=== PATIENT | male | born 1950 | race Caucasian/White ===

== ENCOUNTER 2016-11-13 06:45 | Emergency (ER) | payer MEDICARE, OTHER ==
[2016-11-13 06:52] VITALS: BP 155/83
[2016-11-13 08:54] LABS: Hematocrit 53 % (42-52); Hemoglobin 17.2 g/dl (14.0-18.0); Mean Corpuscular HGB Conc 33 g/dl (31-36); Mean Corpuscular Hemoglobin 30 pg (27-31); Mean Corpuscular Volume 91 fL (80-94); Mean Platelet Volume 7 um3 (7.4-10.4); Red Blood Count 5.83 10^6/ul (4.0-5.4); Red Cell Distribution Width 14 % (10.5-15); White Blood Count 8.1 10^3/ul (3.5-10.8)
[2016-11-13 09:06] LABS: Urine Bacteria Absent (Absent); Urine Bilirubin Negative (Negative); Urine Glucose Negative (Negative); Urine Nitrite Negative (Negative)
[2016-11-13 09:08] LABS: Albumin 4.1 g/dL (3.2-5.2); BUN/Creatinine Ratio 21.2 (8-20); Calcium 9.3 mg/dL (8.6-10.3); EGFR African American 155.8 (>60); EGFR Non-African American 121.1 (>60); Globulin 2.8 g/dL (2-4); Potassium 4.3 mmol/L (3.5-5.0); Total Bilirubin 0.6 mg/dL (0.2-1.0); Total Protein 6.9 g/dL (6.4-8.9)
--- NOTE | 2016-11-13 09:50 | ED ---
Alec Sevilla Salem, scribed for Ayaz Manzano MD on 11/13/16 at 0710 . GI/ HPI - HPI Summary HPI Summary: Patient is a 66 y/o M who presents to the ED with blood in semen since 3 days. He states that he was masturbating when sx occurred, but it has not occurred since. Pt denies fever, chills, dysuria, urgency, trouble starting stream, discharge, urinary sx, or abd pain, but reports mild frequency and mild trouble finishing stream. He states that he does not take blood thinners and denies any recent trauma or relevant surgery. No hx of prostate complaints and no PMHx of DM or A Fib. NKDA. - History of Current Complaint Chief Complaint: EDGeneral Time Seen by Provider: 11/13/16 07:10 Stated Complaint: BLOOD IN ONCOLOGIST Hx Obtained From: Patient Onset/Duration: Started Days Ago, Atraumatic, Resolved Timing: Lasting Minutes Severity: Moderate Current Severity: Moderate Vaginal Bleeding Description: Bright Red Pain Intensity: 0 Associated Signs and Symptoms: Positive: Negative Additional Signs & Symptoms: Negative: Penile Discharge Aggravating Factor(s): Nothing Alleviating Factor(s): Nothing - Allergy/Home Medications Allergies/Adverse Reactions: Allergies Allergy/AdvReac Type Severity Reaction Status Date / Time Codeine Allergy Vomiting Verified 11/13/16 06:56 PMH/Surg Hx/FS Hx/Imm Hx Previously Healthy: Yes Infectious Disease History: No Infectious Disease History: Denies: Traveled Outside the [place] in Last 30 Days - Family History Known Family History: Negative: Hypertension - Social History Alcohol Use: None Hx Substance Use: No Substance Use Type: Reports: None Hx Tobacco Use: Yes Smoking Status (MU): Heavy Every Day Tobacco Smoker Review of Systems Negative: Fever, Chills Negative: Abdominal Pain Genitourinary: Other - No trouble starting stream. Positive: no symptoms reported, frequency - Mild. , other - Blood in semen. Mild touble finishing stream. . Negative: dysuria, discharge All Other Systems Reviewed And Are Negative: Yes Physical Exam - Summary Physical Exam Summary: The patient is well-nourished in no acute distress and in no acute pain. Pt appears older than stated age. The skin is warm and dry and skin color reflects adequate perfusion. HEENT: The head is normocephalic and atraumatic. The pupils are equal and reactive. The conjunctivae are clear and without drainage. Nares are patent and without drainage. Mouth reveals moist mucous membranes and the throat is without erythema and exudate. The external ears are intact. The ear canals are patent and without drainage. The tympanic membranes are intact. Neck is supple with full range of motion and non-tender. There are no carotid bruits. There is no neck vein distension. Respiratory: Chest is non-tender. Lungs are clear to auscultation and breath sounds are symmetrical and equal. Cardiovascular: Hear is regular rate and rhythm. There is no murmur or rub auscultated. There is no peripheral edema and pulses are symmetrical and equal. Abdomen: The abdomen is soft and non-tender. GIGU exam: Testicles distended bilaterally. No inguinal adenopathy. Circumcised. No penile discharge elicited. There appears to be no trauma to penis. External intact. Musculoskeletal: There is no back pain noted. Extremities are non-tender with full range of motion. There is good capillary refill. Neurological: Patient is alert and oriented to person, place and time. The patient has symmetrical motor strength in all four extremities. Psychiatric: The patient has an appropriate affect and does not exhibit any anxiety or depression. Triage Information Reviewed: Yes Vital Signs On Initial Exam: Initial Vitals Temp Pulse Resp BP Pulse Ox 98.2 F 104 20 155/83 98 11/13/16 06:49 11/13/16 06:49 11/13/16 06:49 11/13/16 06:49 11/13/16 06:49 Vital Signs Reviewed: Yes Diagnostics - Vital Signs Vital Signs Temp Pulse Resp BP Pulse Ox 11/13/16 06:55 98.2 F 104 20 155/83 100 11/13/16 06:49 98.2 F 104 20 155/83 98 - Laboratory Lab Results: Lab Results 11/13/16 11/13/16 11/13/16 Range/Units 08:44 08:44 08:44 WBC 8.1 (3.5-10.8) 10^3/ul RBC 5.83 H (4.0-5.4) 10^6/ul Hgb 17.2 (14.0-18.0) g/dl Hct 53 H (42-52) % MCV 91 (80-94) fL MCH 30 (27-31) pg MCHC 33 (31-36) g/dl RDW 14 (10.5-15) % Plt Count 208 (150-450) 10^3/ul MPV 7 L (7.4-10.4) um3 Neut % (Auto) 61.0 (38-83) % Lymph % (Auto) 27.1 (25-47) % Parmer % (Auto) 7.9 (1-9) % Eos % (Auto) 3.1 (0-6) % Baso % (Auto) 0.9 (0-2) % Absolute Neuts (auto) 5.0 (1.5-7.7) 10^3/ul Absolute Lymphs (auto) 2.2 (1.0-4.8) 10^3/ul Absolute Monos (auto) 0.6 (0-0.8) 10^3/ul Absolute Eos (auto) 0.3 (0-0.6) 10^3/ul Absolute Basos (auto) 0.1 (0-0.2) 10^3/ul Absolute Nucleated RBC 0.01 10^3/ul Nucleated RBC % 0.1 INR (Anticoag Therapy) (0.89-1.11) Sodium 136 (133-145) mmol/L Potassium 4.3 (3.5-5.0) mmol/L Chloride 106 (101-111) mmol/L Carbon Dioxide 25 (22-32) mmol/L Anion Gap 5 (2-11) mmol/L BUN 14 (6-24) mg/dL Creatinine 0.66 L (0.67-1.17) mg/dL Est GFR ( Amer) 155.8 (>60) Est GFR (Non-Af Amer) 121.1 (>60) BUN/Creatinine Ratio 21.2 H (8-20) Glucose 100 (70-100) mg/dL Calcium 9.3 (8.6-10.3) mg/dL Total Bilirubin 0.60 (0.2-1.0) mg/dL AST 16 (13-39) U/L ALT 22 (7-52) U/L Alkaline Phosphatase 92 (34-104) U/L Total Protein 6.9 (6.4-8.9) g/dL Albumin 4.1 (3.2-5.2) g/dL Globulin 2.8 (2-4) g/dL Albumin/Globulin Ratio 1.5 (1-3) Prostate Specific Ag Pending Urine Color Yellow Urine Appearance Clear Urine pH 5.0 (5-9) Ur Specific Brandon 1.021 (1.010-1.030) Urine Protein Negative (Negative) Urine Ketones Negative (Negative) Urine Blood 1+ H (Negative) Urine Nitrate Negative (Negative) Urine Bilirubin Negative (Negative) Urine Urobilinogen Negative (Negative) Ur Leukocyte Esterase Negative (Negative) Urine WBC (Auto) Absent (Absent) Urine RBC (Auto) 1+(3-5/hpf) H (Absent) Urine Bacteria Absent (Absent) Urine Glucose Negative (Negative) 11/13/16 Range/Units 08:44 WBC (3.5-10.8) 10^3/ul RBC (4.0-5.4) 10^6/ul Hgb (14.0-18.0) g/dl Hct (42-52) % MCV (80-94) fL MCH (27-31) pg MCHC (31-36) g/dl RDW (10.5-15) % Plt Count (150-450) 10^3/ul MPV (7.4-10.4) um3 Neut % (Auto) (38-83) % Lymph % (Auto) (25-47) % Parmer % (Auto) (1-9) % Eos % (Auto) (0-6) % Baso % (Auto) (0-2) % Absolute Neuts (auto) (1.5-7.7) 10^3/ul Absolute Lymphs (auto) (1.0-4.8) 10^3/ul Absolute Monos (auto) (0-0.8) 10^3/ul Absolute Eos (auto) (0-0.6) 10^3/ul Absolute Basos (auto) (0-0.2) 10^3/ul Absolute Nucleated RBC 10^3/ul Nucleated RBC % INR (Anticoag Therapy) 0.95 (0.89-1.11) Sodium (133-145) mmol/L Potassium (3.5-5.0) mmol/L Chloride (101-111) mmol/L Carbon Dioxide (22-32) mmol/L Anion Gap (2-11) mmol/L BUN (6-24) mg/dL Creatinine (0.67-1.17) mg/dL Est GFR ( Amer) (>60) Est GFR (Non-Af Amer) (>60) BUN/Creatinine Ratio (8-20) Glucose (70-100) mg/dL Calcium (8.6-10.3) mg/dL Total Bilirubin (0.2-1.0) mg/dL AST (13-39) U/L ALT (7-52) U/L Alkaline Phosphatase (34-104) U/L Total Protein (6.4-8.9) g/dL Albumin (3.2-5.2) g/dL Globulin (2-4) g/dL Albumin/Globulin Ratio (1-3) Prostate Specific Ag Urine Color Urine Appearance Urine pH (5-9) Ur Specific Brandon (1.010-1.030) Urine Protein (Negative) Urine Ketones (Negative) Urine Blood (Negative) Urine Nitrate (Negative) Urine Bilirubin (Negative) Urine Urobilinogen (Negative) Ur Leukocyte Esterase (Negative) Urine WBC (Auto) (Absent) Urine RBC (Auto) (Absent) Urine Bacteria (Absent) Urine Glucose (Negative) Result Diagrams: 11/13/16 08:44 11/13/16 08:44 Lab Statement: Any lab studies that have been ordered have been reviewed, and results considered in the medical decision making process. GIGU Course/Dx - Course Course Of Treatment: 66 y/o M presents with blood in semen since 3 days. Pt denies fever, chills, dysuria, urgency, trouble starting stream, discharge, urinary sx, or abd pain, but reports mild frequency and mild trouble finishing stream. Pt will be DC'd with Cipro to follow up with urology. - Diagnoses Differential Diagnoses - Male: Other - std, prostatitis, anticoagulation therapy , trauma, uti, trichomoniasis, prostrate cancer Provider Diagnoses: Hematospermia Discharge - Discharge Plan Condition: Stable Disposition: HOME Prescriptions: Ciprofloxacin TAB* [Cipro 500 MG TAB*] 500 mg PO BID #20 tab Referrals: [facility] [place] PHYSICIAN REFERRAL [Outside] Malvin Abraham MD [Medical Doctor] - Additional Instructions: Please follow up with Dr. Abraham. SUMMARY AND RECOMMENDATIONS Hematospermia is almost always a benign condition. There are multiple causes for hematospermia (table 1); the most common etiology is prostate biopsy. (See ' Etiology' above.) For patients who are otherwise asymptomatic, the initial evaluation consists of a history, physical examination, and urinalysis. Other studies are indicated only if abnormalities are suggested by these initial measures or if hematospermia persists. (See 'Evaluation' above.) Men with hematospermia and symptoms of urethritis should be tested for gonorrhea and chlamydia. Persistent unexplained hematospermia (lasting longer than one month) should be evaluated with transrectal ultrasonography and, in men over age 50, referral to a urologist. (See 'Evaluation' above.) In most cases, the evaluation will not identify a clear cause of hematospermia. Thus, there is no specific medical or surgical treatment for the majority of patients, and the condition will usually resolve spontaneously. (See 'Treatment ' above.) When no serious abnormalities with hematospermia are found, the most important therapeutic intervention is reassurance. (See 'Reassurance' above.) Abnormalities reported in patients with hematospermia Infections Chlamydia Cytomegalovirus Enterococcus faecalis Herpes simplex virus Schistosomiasis Trichomoniasis Tuberculosis Ureaplasma urealyticum Malignant tumors (urogenital) Bladder cancer Prostate adenocarcinoma Prostate sarcoma Testicular tumors Malignant tumors (metastatic) Melanoma Renal cell carcinoma Prostatic disorders Benign prostatic hypertrophy Prostatic calculi Prostatic telangiectasia Prostatic urethral hemangiomas Prostatic urethral polyps Prostatic utricle (or mllerian duct) cysts Prostatitis Seminal vesicle disorders Adenomyosis Amyloidosis Calculi Cancer Cysts Dilated seminal vesicles Ectopic prostate tissue Hemorrhage Spermatic cord and ejaculatory system disorders Cavernous hemangiomas Ejaculation duct obstruction Epididymitis Urethral disorders Ectopic prostate tissue Papillary urethritis Vascular disorders Genitourinary varices Malignant hypertension Other Aspirin therapy Hyperuricemia Prothrombin deficiency von Willebrand disease The documentation as recorded by the Alec tobar Salem accurately reflects the service I personally performed and the decisions made by Jose Juan knight Drew, MD.
== END 2016-11-13 09:45 | disposition home or self-care (01) ==
LOC: ED 06:45
DX: R36.1 Hematospermia (principal); F17.210 Nicotine dependence, cigarettes, uncomplicated
CPT/HCPCS: 36415; 80053; 81003; 81015; 84153; 85025; 85610; 87491; 87591; 99282; G0103

== ENCOUNTER 2017-01-22 06:12 | Day surgery (SDC) | payer MEDICARE ==
--- NOTE | 2017-01-15 00:23 | HP ---
CC: Dr. Kimberly Hayes* HISTORY AND PHYSICAL: DATE OF PLANNED ADMISSION AND SURGERY: 01/22/17 HISTORY OF PRESENT ILLNESS: Mr. Mahoney is a 66-year-old white male who is admitted with microscopic hematuria, thickening of the distal right ureter for cystoscopy, right retrograde pyelography, possible right ureteroscopy, and right ureteral stent insertion. Mr. Mahoney is a chronic heavy smoker of 1 to 2 packs per day for more than 50 years. He presented to the emergency room last month with asymptomatic hemospermia. There was no associated flank or abdominal pain and no voiding symptoms. He did not have any urinary tract infection. His PSA was normal at 0.8 and his urinalysis shows 1+ blood, was negative otherwise. He was managed conservatively and referred to our office for further evaluation. The hemospermia has not recurred and he had remained asymptomatic. His repeat urinalysis in the office continued to show microscopic hematuria. This has remained asymptomatic. Because of the history of chronic smoking work-up of the microhematuria was carried. Office cystoscopy showed distal urethral stricture that had to be dilated to introduce the flexible cystoscope. The bladder wall looked normal, and no suspicious lesions were seen. Urine cytology was negative. CT urogram showed incomplete filling of the distal right ureter with suggestion of thickening of the distal right ureteral wall. There was, however, no hydronephrosis and there were no abnormal filling defects in the rest of the visualized portions of the ureters or in the collecting systems. The kidneys looked normal. Because of the findings on the CT scan and history of chronic heavy smoking and to rule out a distal right ureteral pathology, the patient is admitted for the above procedure. Past medical history and system review and physical examinations are detailed in the preoperative physical exam done by Dr. Hayes in preparation for this admission. I am including a copy of her dictation as well as the patient's EKG' s. PHYSICAL EXAMINATION VITAL SIGNS: Blood pressure 130/80, pulse of 100. LUNGS: Clear. HEART: Regular and rhythmic. No murmurs. ABDOMEN: Soft. No masses, no tenderness, and no CVA tenderness. GENITALIA: External genitalia are normal. RECTAL: Shows non-enlarged and non-suspicious prostate. EXTREMITIES: Show no edema. He has decreased distal pulses in his lower extremities. IMPRESSION: 1. Microscopic hematuria in a chronic heavy smoker with thickening of the distal right ureter on CT urogram and negative cystoscopy. 2. Urethral stricture. PLAN: For cystoscopy, right retrograde pyelography, possible right ureteroscopy , and right ureteral stent placement. I discussed the above plans with the patient. All his questions were answered. [id number] #: [id number] MTDD
[~2017-01-22 06:12] MED LIST: Buffered Lidocaine 0.9% SYRIN* 5 ML/SYR SYRINGE INTRADERM ONE; Buffered Lidocaine 0.9% SYRIN* 5 ML/SYR SYRINGE ONE; Dexamethasone IV* 4 MG/ML 1 ML (4 MG) IV SLOW PU ONE; Dexamethasone IV* 4 MG/ML 1 ML (4 MG) ONE; Famotidine IV* 10 MG/ML 2 ML (20 mg) IV ONE; Famotidine IV* 10 MG/ML 2 ML (20 mg) ONE
[2017-01-22] MEDS ORDERED: Iohexol 180 (CONTRAST) 10 ML SDV IV ONE (07:16)
[2017-01-22] MEDS ORDERED: fentaNYL* 50 MCG/ML 2 ML VIAL (100 MCG VIAL) ONE (07:41)
[2017-01-22] MEDS ORDERED: Midazolam* 1 MG/ML 2 ML VIAL (2 MG) ONE (07:41)
[2017-01-22] MEDS ORDERED: Propofol* 10 MG/ML 20 ML BTL IV PUSH ONE (07:42)
[2017-01-22] MEDS ORDERED: Phenylephrine IV* 40 MCG/ML 10 ML SYRINGE ONE (08:07)
[2017-01-22] MEDS ORDERED: EPHEDrine (Pressors)* 50 MG/ML VIAL ONE (08:07)
[2017-01-22] MEDS ORDERED: Ketorolac INJ* 30 MG/ML 1 ML VIAL ONE (08:26)
[2017-01-22] MEDS ORDERED: Ondansetron INJ* 2 MG/ML VIAL ONE (08:26)
[2017-01-22] MEDS ORDERED: fentaNYL* 50 MCG/ML 2 ML VIAL (100 MCG VIAL) IV PRN (08:45)
[2017-01-22] MEDS ORDERED: DiMENhydriNATE IV* 50 MG/ML VIAL IV PUSH PRN (08:45)
[2017-01-22 09:02] VITALS: BP 113/73
--- NOTE | 2017-01-22 09:20 | RAD ---
INDICATION: Retrograded ureterogram COMPARISONS: CT dated December 11, 2016 TECHNIQUE: Fluoroscopy was provided for a retrograde pyelogram. Total fluoroscopy time is: 9 seconds FINDINGS: Contrast is noted within the right renal collecting system. The visualized portion of the ureter appears smooth in contour. IMPRESSION: FLUOROSCOPY WAS PROVIDED FOR A RETROGRADE PYELOGRAM CPT II Codes: 6045F
--- NOTE | 2017-01-22 11:13 | OP ---
CC: Dr. Kimberly Hayes * DATE OF OPERATION: 01/22/17 - [facility] DATE OF : 52 SURGEON: Shahzad Reyes MD ANESTHESIOLOGIST: Dr. Gerson Gunter ANESTHESIA: General. PRE-OP DIAGNOSES: Microscopic hematuria, rule out distal right ureteral tumor. POST-OP DIAGNOSES: 1. Distal urethral stricture. 2. Negative cystoscopy. 3. Normal right retrograde pyelogram. OPERATIVE PROCEDURE: 1. Urethral dilation. 2. Cystoscopy. 3. Right retrograde pyelography. 4. Washings from right ureter. INDICATION FOR PROCEDURE: Mr. Mahoney is a 66-year-old male, who is a chronic heavy smoker and who was worked up because of asymptomatic microscopic hematuria. Office cystoscopy was negative except for a distal urethral stricture. CT urogram showed incomplete filling, thickening, and irregularity of the distal right ureter without associated hydronephrosis. Urine cytology was negative. Because of the above findings and to rule out any right ureteral tumor, patient was admitted for the above procedure. PATHOLOGY AT CYSTOSCOPY: There was a tight stricture of the urethral meatus and of the fossa navicularis. The rest of the urethra looked normal. The prostatic urethra measured about 2.5 cm in length and there was mild-to- moderate obstruction of the bladder outlet. Examination of the bladder showed moderate diffuse trabeculations. There were no suspicious bladder lesions noted. No changes to suggest carcinoma in situ. The ureteral orifices looked normal. Upon right retrograde pyelography, the right ureter looked normal. There was no irregularity of the ureter and no abnormal filling defects and a normal collecting system. DESCRIPTION OF PROCEDURE: After successful general anesthesia, the patient was placed in the lithotomy position and was prepped and draped for a cystoscopy. The cystoscope was not being introduced because of the tight distal urethral stricture. The urethral meatus and fossa navicularis were sequentially dilated to size a 22- Mexican allowing the introduction of the cystoscope. The rest of the urethra was inspected. The findings in the prostatic urethra were noted. The bladder was then entered and inspected and the above findings were noted. A flexible-tip guidewire was then positioned in the distal ureter and a size 5- Mexican open-ended catheter was fed on top of the guidewire and positioned in the distal ureter. Retrograde pyelography was then performed. The whole ureter and the collecting system were well visualized and there were no abnormalities noted and no irregularity of the mucosa and no filling defects. It was then decided not to perform a ureteroscopy. Washings were obtained from the mid and distal ureter and sent for cytology. At the completion of the procedure, there was good drainage of contrast from the kidney. The patient tolerated the procedure well and left the operating room in good condition. The plan is to teach the patient how to perform dilation of the distal urethra with a 16 red rubber catheter. He will be seen in the office for followup. If the cytology is positive or suspicious, the patient will be brought back in for full ureteroscopy and pyeloscopy. [id number] #: [id number]
== END 2017-01-22 09:50 | disposition home or self-care (01) ==
LOC: OR 06:12
PROVIDERS: ATTEND Urology
DX: N35.8 Other urethral stricture (principal); R31.29 Other microscopic hematuria; F17.210 Nicotine dependence, cigarettes, uncomplicated; N32.0 Bladder-neck obstruction
CPT/HCPCS: 74420; 88112; J0696; J1100; J1885; J2250; J2405; J2704; J3010

== ENCOUNTER 2024-03-02 10:28 | Inpatient (IN) ==
[2024-03-02] MEDS ORDERED: Albuterol/Ipratropium NEB.SOL (2.5/0.5 MG) 3 ML NEB.SOLN INH PRN (11:17)
[2024-03-02 11:47] LABS: Venous Bicarbonate HCO3 31.5 mmol/L (24-28)
[2024-03-02] MEDS: Azithromycin 500 mg/250 ml NS 500 MG/250 ML BAG IVPB ONE (11:50)
[2024-03-02] MEDS: methylPREDNISolone SOD SUCC 125 mg 2 ML VIAL IV ONE (11:50)
[2024-03-02 11:54] LABS: ABS Eosinophils 0.1 10^3/uL (0.0-0.5); ABS Lymphocytes 0.9 10^3/uL (1.0-4.8); ABS Monocytes 0.5 10^3/uL (0.0-1.1); ABS Neutrophils 6.7 10^3/uL (1.5-7.6); Hemoglobin 15.4 g/dL (13.2-16.3); Lymphocyte % 10.4 %; Mean Corpuscular Hgb Conc 32.8 g/dL (31-36); Mean Corpuscular Volume 97.5 fL (80-97); Mean Platelet Volume 7.4 fL (7.5-11.2); Platelet Count 230 10^3/uL (150-450); Red Blood Count 4.82 10^6/uL (4.06-5.63); Red Cell Distribution Width 14.5 % (12-17); White Blood Count 8.2 10^3/uL (3.6-10.2)
[2024-03-02 12:20] LABS: Albumin 3.8 g/dL (3.2-5.2); Albumin/Globulin Ratio 1.8 (1-3); C Reactive Protein 5.07 mg/L (<8.01); Calcium 9.3 mg/dL (8.6-10.3); Creatinine, Serum 0.7 mg/dL (0.67-1.17); Globulin 2.1 g/dL (2-4); Potassium 4.4 mmol/L (3.5-5.0); Total Bilirubin 0.7 mg/dL (0.2-1.0); Total Protein 5.9 g/dL (6.4-8.9); eGFR CKD-EPI 97.9 (>60)
[2024-03-02 12:58] LABS: High Sensitivity Troponin 1 Hr 7 pg/mL (<20)
[2024-03-02] MEDS: Iohexol 350 (CONTRAST) 500 ML MDV IV ONE (13:07)
[2024-03-02] MEDS: Enoxaparin 40 MG/0.4 ML SYR SUBCUT SCH (16:46)
[2024-03-02] MEDS: Aspirin EC 81 mg TAB.EC (enteric coated) PO SCH (20:42)
[2024-03-02] MEDS ORDERED: BUDESONIDE/GLYCOPYR/FORMOTEROL MDI (NF) INH SCH (21:00)
[2024-03-02] MEDS: Albuterol/Ipratropium NEB.SOL (2.5/0.5 MG) 3 ML NEB.SOLN INH PRN (21:55)
[2024-03-03 06:20] LABS: ABS Lymphocytes 0.5 10^3/uL (1.0-4.8); ABS Monocytes 0.4 10^3/uL (0.0-1.1); ABS Neutrophils 4.6 10^3/uL (1.5-7.6); Hematocrit 43.6 % (38-53); Hemoglobin 14.3 g/dL (13.2-16.3); Lymphocyte % 9.5 %; Mean Corpuscular Hemoglobin 32.1 pg (27-33); Mean Corpuscular Hgb Conc 32.8 g/dL (31-36); Mean Corpuscular Volume 98.1 fL (80-97); Mean Platelet Volume 7.1 fL (7.5-11.2); Platelet Count 188 10^3/uL (150-450); Red Blood Count 4.44 10^6/uL (4.06-5.63); Red Cell Distribution Width 14.3 % (12-17); White Blood Count 5.5 10^3/uL (3.6-10.2)
[2024-03-03 06:23] LABS: INR 1.15 (0.85-1.14)
[2024-03-03 07:01] LABS: Albumin 3.5 g/dL (3.2-5.2); Albumin/Globulin Ratio 1.8 (1-3); Calcium 8.7 mg/dL (8.6-10.3); Creatinine, Serum 0.71 mg/dL (0.67-1.17); Globulin 1.9 g/dL (2-4); Magnesium 1.9 mg/dL (1.9-2.7); Total Bilirubin 0.4 mg/dL (0.2-1.0); Total Protein 5.4 g/dL (6.4-8.9); eGFR CKD-EPI 97.5 (>60)
[2024-03-03] MEDS: Albuterol HFA INHALER 8 gm MDI INH PRN (12:16)
[2024-03-03] MEDS: Sulfur Hexaflouride MICROSPHR 25 MG VIAL IV PRN (14:13)
[2024-03-03] MEDS: Formoterol 20 MCG/2ML NEB (NF) 10 MCG/ML NEB.SOLN INH SCH (19:33)
[2024-03-04 06:15] LABS: ABS Eosinophils 0.1 10^3/uL (0.0-0.5); ABS Monocytes 0.7 10^3/uL (0.0-1.1); ABS Neutrophils 7.2 10^3/uL (1.5-7.6); Eosinophil % 0.6 %; Hemoglobin 14.2 g/dL (13.2-16.3); Lymphocyte % 10.9 %; Mean Corpuscular Hemoglobin 32.7 pg (27-33); Mean Corpuscular Volume 99.1 fL (80-97); Mean Platelet Volume 7.1 fL (7.5-11.2); Platelet Count 191 10^3/uL (150-450); Red Blood Count 4.34 10^6/uL (4.06-5.63)
[2024-03-04 07:04] LABS: Albumin 3.6 g/dL (3.2-5.2); Albumin/Globulin Ratio 1.8 (1-3); Creatinine, Serum 0.78 mg/dL (0.67-1.17); Magnesium 1.9 mg/dL (1.9-2.7); Potassium 4.5 mmol/L (3.5-5.0); Total Bilirubin 0.4 mg/dL (0.2-1.0); Total Protein 5.6 g/dL (6.4-8.9); eGFR CKD-EPI 94.8 (>60)
[2024-03-04] MEDS ORDERED: Nicotine GUM 4MG FRUIT FLAVOR PO PRN (12:19)
[2024-03-04] MEDS: CMC:Roflumilast 500 mcg TAB (NF) PO SCH (15:44)
[2024-03-04] MEDS: Nicotine PATCH 21 MG/24 HR PATCH TRANSDERM SCH (15:46)
[2024-03-04] MEDS: Mometasone/Formoter 200/5 MDI INH SCH (18:32)
[2024-03-04] MEDS: SPIRIVA Respimat (tiotropium) 2.5 mcg/inh Inhaler INH SCH (18:33)
[2024-03-05 07:11] LABS: ABS Eosinophils 0.1 10^3/uL (0.0-0.5); ABS Lymphocytes 1.1 10^3/uL (1.0-4.8); ABS Monocytes 0.7 10^3/uL (0.0-1.1); ABS Nucleated RBC 0.01 10^3/ul; Hemoglobin 15.5 g/dL (13.2-16.3); Lymphocyte % 15.9 %; Mean Corpuscular Hemoglobin 32.6 pg (27-33); Mean Corpuscular Hgb Conc 32.9 g/dL (31-36); Mean Corpuscular Volume 98.9 fL (80-97); Mean Platelet Volume 7.2 fL (7.5-11.2); Nucleated Red Blood Cells % 0.1 %/100WBC (0.0-0.8); Platelet Count 194 10^3/uL (150-450); Red Blood Count 4.75 10^6/uL (4.06-5.63); Red Cell Distribution Width 14.3 % (12-17); White Blood Count 6.9 10^3/uL (3.6-10.2)
[2024-03-05 07:45] LABS: Potassium 4.9 mmol/L (3.5-5.0)
[2024-03-05 07:46] LABS: Albumin 3.8 g/dL (3.2-5.2); Albumin/Globulin Ratio 1.7 (1-3); Calcium 9.4 mg/dL (8.6-10.3); Creatinine, Serum 0.71 mg/dL (0.67-1.17); Globulin 2.2 g/dL (2-4); Total Bilirubin 0.5 mg/dL (0.2-1.0); eGFR CKD-EPI 97.5 (>60)
[2024-03-05] MEDS: Albuterol 2.5mg/3 ml (0.083%) NEB.SOLN INH PRN (09:13)
[2024-03-06 07:06] LABS: ABS Eosinophils 0.1 10^3/uL (0.0-0.5); ABS Lymphocytes 1.4 10^3/uL (1.0-4.8); ABS Monocytes 0.7 10^3/uL (0.0-1.1); ABS Neutrophils 5.4 10^3/uL (1.5-7.6); Hematocrit 46.5 % (38-53); Hemoglobin 15.5 g/dL (13.2-16.3); Lymphocyte % 18.6 %; Mean Corpuscular Hemoglobin 32.4 pg (27-33); Mean Corpuscular Hgb Conc 33.3 g/dL (31-36); Mean Corpuscular Volume 97.3 fL (80-97); Mean Platelet Volume 7.1 fL (7.5-11.2); Platelet Count 212 10^3/uL (150-450); Red Blood Count 4.78 10^6/uL (4.06-5.63); Red Cell Distribution Width 14.2 % (12-17); White Blood Count 7.7 10^3/uL (3.6-10.2)
[2024-03-06 07:29] LABS: Albumin 3.7 g/dL (3.2-5.2); Albumin/Globulin Ratio 1.9 (1-3); Calcium 9.5 mg/dL (8.6-10.3); Creatinine, Serum 0.79 mg/dL (0.67-1.17); Potassium 4.5 mmol/L (3.5-5.0); Total Protein 5.7 g/dL (6.4-8.9); eGFR CKD-EPI 94.4 (>60)
[2024-03-06 09:56] VITALS: BP 90/51
== END 2024-03-06 13:18 | disposition home or self-care (01) | DRG 190 ==
LOC: ED 10:28 → EDHOLD 10:28 → SUATTDRO 15:56 → MED 22:14
PROVIDERS: ADMIT Internal Medicine; ATTEND Internal Medicine